=== PATIENT | female | born 1985 | race Caucasian/White ===

== ENCOUNTER 2022-11-11 11:56 | Emergency (ER) | payer OTHER, SELFPAY ==
[2022-11-11 12:05] VITALS: BP 141/71; PULSE 68; RESP 16; TEMP 36.7; O2SAT 100; BMI 28.9
--- NOTE | 2022-11-11 12:13 | DI.US.S_ITS ---
PROCEDURE: US PELVIC COMPLETE INDICATIONS: BLEEDING TECHNIQUE: Real-time scanning was performed of the pelvic organs, with image documentation. Additional endovaginal scanning was necessary due to incomplete visualization of the adnexal and endometrial structures by transabdominal scanning. COMPARISON: None. FINDINGS: Uterus: Uterus is anteverted and normal in size at 9.2 x 4.7 x 6.3 cm. The myometrium is homogeneous. The endometrium measures 21 mm combined thickness. Mild abnormal vascularity can be seen along the endometrial stripe. The cervix demonstrates a complex, irregular appearance. Ovaries: The right ovary measures 3.3 x 2 x 3.3 cm, with a calculated ovarian volume of 11.4 cc. The left ovary measures 3.1 x 2.1 x 2.1 cm, with a calculated ovarian volume of 7.4 cc. The ovaries have a normal sonographic appearance. Less than 12 follicles can be seen in each ovary. No adnexal masses are seen. Normal appearing venous and arterial waveforms are confirmed to each ovary. Other: No pathologic free abdominal or pelvic fluid. IMPRESSION: Thickened endometrial stripe, with abnormal vascularity seen along the endometrial stripe. This represents retained products of conception until proven otherwise. We strive to produce accurate, complete, and clear reports of imaging services. To assist us in improving patient care, this report was composed using standard report templates and voice recognition software. Therefore, it may contain abnormal punctuation, insertions and/or omissions. Occasional wrong-word or sound-alike substitutions may occur. Though we review the report and make efforts to correct it, we do recommend that the report be read carefully in proper context to recognize any text inaccuracies. Dictated by: John Pelaez M.D. on 11/11/2022 at 11:53 Approved by: John Pelaez M.D. on 11/11/2022 at 11:55
[2022-11-11 15:10] LABS: Add Manual Diff / Slide Review NO; Basophils Absolute Auto 100 /uL (0-100); Basophils Percent Auto 0.6 % (0-2); Eosinophils Absolute Auto 100 /uL (0-450); Hematocrit 37.9 % (36-46); Hemoglobin 12.7 g/dL (12.0-16.0); Lymphocytes Absolute Auto 1900 /uL (1100-4500); Lymphocytes Percent Auto 18.7 % (25-40); Mean Corpuscular HGB Conc 33.5 % (30-36); Mean Corpuscular Hemoglobin 27.6 PG (26-34); Mean Corpuscular Volume 82.4 fL (80-100); Monocytes Absolute Auto 400 /uL (0-900); Monocytes Percent Auto 4.1 % (3-14); Neutrophils Absolute Auto 7500 /uL (1500-7000); Neutrophils Percent Auto 75.6 % (50-75); Platelet Count 352 X10^3/uL (150-400); Red Cell Distribution Width 13.9 % (11.6-14.8); White Blood Cell Count 9.9 X10^3/uL (4.5-11.0)
[2022-11-11 15:15] LABS: Alanine Aminotransferase 11 IU/L (<35); Albumin 4.4 g/dL (3.5-5.0); Albumin Globulin Ratio 1.5 (1.0-2.8); Alkaline Phosphatase 49 U/L (38-126); Aspartate Aminotransferase 26 IU/L (14-36); BUN Creatinine Ratio 16.3 (6-22); Bilirubin Total 0.2 mg/dL (0.2-1.3); Blood Urea Nitrogen 13 mg/dL (7-17); Calcium 9.2 mg/dL (8.4-10.2); Carbon Dioxide 26 mmol/L (22-32); Chloride 104 mmol/L (98-107); Estimated Glomerular Filt Rate > 60 mL/min (>60); Glucose 99 mg/dL (70-100); HEMOLYSIS < 15 (0-50); Sodium 138 mmol/L (137-145); Total Protein 7.4 g/dL (6.3-8.2)
[2022-11-11 15:32] LABS: HCG Quantitative /Beta subunit 92.3 mIU/mL
--- NOTE | 2022-11-11 17:13 | ED.PREGNANCY ---
HPI - <Varun Sutherland PA-C - Last Filed: 11/11/22 17:40> General Chief complaint: Urogenital-Female Stated complaint: post miscarriage/still bleeding Time Seen by Provider: 11/11/22 13:43 Source: patient Mode of arrival: Ambulatory Limitations: no limitations History of Present Illness HPI Narrative: 36-year-old presents to the ED with abnormal bright red vaginal bleeding after a miscarriage. Patient states that she experienced a miscarriage 2-3 weeks ago, had copious bleeding which eventually tapered off. However, patient states that yesterday she started experiencing left-sided pelvic cramping and bright red vaginal bleeding. patient denies fever, chills, chest pain, shortness of breath, nausea, vomiting, dysuria, lightheadedness, dizziness, syncope. Patient states that she is not currently under the care of an OBGYN, states she was seeing a vacuum applicator operator when she had her miscarriage. Related Data Allergies Allergy/AdvReac Type Severity Reaction Status Date / Time tetracycline Allergy Intermediate Hives Verified 11/11/22 12:10 Review of Systems <Varun Sutherland PA-C - Last Filed: 11/11/22 17:40> Review of Systems ROS Unobtainable: All systems reviewed & are unremarkable except as noted in HPI and below Constitutional Constitutional: Denies chills, Denies fatigue, Denies fever(s), Denies frequent falls, Denies lethargy and Denies weakness Eyes Eyes: Denies change in vision, Denies eye discharge, Denies irritation and Denies loss of vision ENT Ears, Nose, Mouth, and Throat: Denies change in voice, Denies dizziness, Denies neck pain, Denies sore throat and Denies throat swelling Cardiovascular Cardiovascular: Denies chest pain, Denies irregular heart rhythm, Denies lightheadedness, Denies palpitations, Denies dyspnea, Denies dyspnea on exertion and Denies orthopnea Respiratory Respiratory: Denies cough, Denies dyspnea, Denies dyspnea on exertion and Denies wheezing Gastrointestinal Gastrointestinal: Denies abdominal pain, Denies change in bowel habits, Denies diarrhea, Denies nausea and Denies vomiting Genitourinary Genitourinary: Reports abnormal vaginal bleeding, Denies hematuria, Reports pelvic pain, Denies flank pain, Denies urinary incontinence and Denies urinary urgency Musculoskeletal Musculoskeletal: Denies back pain, Denies muscle weakness, Denies neck pain, Denies numbness and Denies tingling Integumentary/Breasts Skin/Breast: Denies pruritus, Denies erythema, Denies rash and Denies wounds Neurologic Neurologic: Denies behavioral changes, Denies confusion, Denies dizziness, Denies frequent falls, Denies loss of vision, Denies numbness, Denies tingling and Denies weakness Psychiatric Psychiatric: Denies anxiety, Denies behavioral changes, Denies confusion, Denies depression, Denies homicidal ideation and Denies suicidal ideation Endocrine Endocrine: Denies fatigue, Denies flushing and Denies palpitations Hematologic/Lymphatic Hematologic/Lymphatic: Denies easy bruising Allergic/Immunologic Allergic/Immunologic: Denies urticaria, Denies throat swelling and Denies wheezing Exam <Varun Sutherland PA-C - Last Filed: 11/11/22 17:40> Narrative Exam Narrative: Const General:?cooperative, healthy appearing and comfortable [facility] Head:?normal to inspection Ears:?hearing grossly normal bilaterally Nose:?external nose normal Face and sinus:?normal facial exam and sinuses nontender Mouth:?oral mucosae normal Throat:?posterior oropharynx normal Eyes General:?appearance normal, both eyes and all related structures Neck Neck:?normal visual inspection and no lymphadenopathy noted Resp Effort & Inspection:?normal respiratory effort Auscultation:?clear to auscultation bilaterally Cardio Rate:?regular rate Rhythm:?regular rhythm GI Abdomen is soft, nondistended, nontender to palpation. Neuro General:?patient alert, patient awake and patient oriented x3 Initial Vital Signs Initial Vital Signs: Vital Signs Temperature 98.1 F 11/11/22 12:05 Pulse Rate 68 11/11/22 12:05 Respiratory Rate 16 11/11/22 12:05 Blood Pressure 141/71 H 11/11/22 12:05 Pulse Oximetry 100 11/11/22 12:05 Oxygen Delivery Method Room Air 11/11/22 12:05 <Mayte Eduardo DO - Last Filed: 11/12/22 08:23> Initial Vital Signs Initial Vital Signs: Vital Signs Temperature 98.1 F 11/11/22 12:05 Pulse Rate 68 11/11/22 12:05 Respiratory Rate 16 11/11/22 12:05 Blood Pressure 141/71 H 11/11/22 12:05 Pulse Oximetry 100 11/11/22 12:05 Oxygen Delivery Method Room Air 11/11/22 12:05 Course <Varun Sutherland PA-C - Last Filed: 11/11/22 17:40> Orders Ordered: Discontinued Medications Acetaminophen (Acetaminophen 325 Mg Tablet) 975 mg PO NOW ONE Stop: 11/11/22 17:18 Last Admin: 11/11/22 17:20 Dose: 975 mg Documented By: RB Ondansetron HCl (Ondansetron 4 Mg Odt) 4 mg SL NOW ONE Stop: 11/11/22 17:18 Last Admin: 11/11/22 17:20 Dose: 4 mg Documented By: RB Vital Signs Vital signs: Vital Signs - 8 hr 11/11/22 12:05 Temperature 98.1 F Pulse Rate 68 Respiratory Rate 16 Blood Pressure 141/71 H Pulse Oximetry 100 Oxygen Delivery Method Room Air <Mayte Eduardo DO - Last Filed: 11/12/22 08:23> Orders Ordered: Discontinued Medications Acetaminophen (Acetaminophen 325 Mg Tablet) 975 mg PO NOW ONE Stop: 11/11/22 17:18 Last Admin: 11/11/22 17:20 Dose: 975 mg Documented By: RB Ondansetron HCl (Ondansetron 4 Mg Odt) 4 mg SL NOW ONE Stop: 11/11/22 17:18 Last Admin: 11/11/22 17:20 Dose: 4 mg Documented By: RB Vital Signs Vital signs: Vital Signs - 8 hr 11/11/22 12:05 Temperature 98.1 F Pulse Rate 68 Respiratory Rate 16 Blood Pressure 141/71 H Pulse Oximetry 100 Oxygen Delivery Method Room Air MDM - OB/Uterine Contractions <Varun Sutherland PA-C - Last Filed: 11/11/22 17:40> Lab Data 11/11/22 14:50 11/11/22 14:50 Labs: Lab Results 11/11/22 11/11/22 11/11/22 Range/Units 14:50 14:50 14:50 WBC 9.9 (4.5-11.0) X10^3/uL RBC 4.60 (4.0-5.2) X10^6/uL Hgb 12.7 (12.0-16.0) g/dL Hct 37.9 (36-46) % MCV 82.4 (80-100) fL MCH 27.6 (26-34) PG MCHC 33.5 (30-36) % RDW 13.9 (11.6-14.8) % Plt Count 352 (150-400) X10^3/uL Neut % (Auto) 75.6 H (50-75) % Lymph % (Auto) 18.7 L (25-40) % [place] % (Auto) 4.1 (3-14) % Eos % (Auto) 1.0 L (2-4) % Baso % (Auto) 0.6 (0-2) % Neut # (Auto) 7500 H (9586-8809) /uL Lymph # (Auto) 1900 (0477-9977) /uL [place] # (Auto) 400 (0-900) /uL Eos # (Auto) 100 (0-450) /uL Baso # (Auto) 100 (0-100) /uL Sodium 138 (137-145) mmol/L Potassium 4.0 (3.4-5.1) mmol/L Chloride 104 (98-107) mmol/L Carbon Dioxide 26 (22-32) mmol/L BUN 13 (7-17) mg/dL Creatinine 0.80 (0.52-1.04) mg/dL Estimated GFR > 60 (>60) mL/min BUN/Creatinine Ratio 16.3 (6-22) Glucose 99 (70-100) mg/dL Calcium 9.2 (8.4-10.2) mg/dL Total Bilirubin 0.2 (0.2-1.3) mg/dL AST 26 (14-36) IU/L ALT 11 (<35) IU/L Alkaline Phosphatase 49 (38-126) U/L Total Protein 7.4 (6.3-8.2) g/dL Albumin 4.4 (3.5-5.0) g/dL Globulin 3.0 (1.7-4.1) g/dL Albumin/Globulin Ratio 1.5 (1.0-2.8) HCG, Quant 92.3 mIU/mL Blood Type A Positive MDM Narrative Medical decision making narrative: 36-year-old presents to the ED with abnormal bright red vaginal bleeding after a miscarriage. Concern for retained products of conception versus intrauterine versus ectopic versus other intra-abdominal pathology versus menstrual period versus other. will obtain labs, type and screen, hCG quantitative, pelvic ultrasound. Will reassess. Ultrasound shows a thickened endometrial stripe, with abnormal vascularity seen along the endometrial stripe. This represents retained products of conception until proven otherwise. No pathology free abdominal or pelvic fluid. Quantitative hCG is 92.3. Patient is blood type A positive. All labs otherwise within normal limits. Given that patient does not have an OBGYN that she sees, our on-call OBGYN Dr. Davis was consulted. Dr. Davis will come down and see the patient. During the ED stay, patient expressed worsening pain and nausea. Will give Tylenol, Zofran. Will reassess. Patient's symptoms improved with medications. Dr. Davis saw the patient, has scheduled a D&C procedure for 11/13/2022. She has also given patient misoprostol to take prior to the procedure. Patient agrees to follow-up with Dr. Davis as scheduled. ED return precautions were discussed with patient. She verbalized understanding. Medical records reviewed: Yes <Mayte Eduardo, - Last Filed: 11/12/22 08:23> Lab Data Labs: Lab Results 11/11/22 11/11/22 11/11/22 Range/Units 14:50 14:50 14:50 WBC 9.9 (4.5-11.0) X10^3/uL RBC 4.60 (4.0-5.2) X10^6/uL Hgb 12.7 (12.0-16.0) g/dL Hct 37.9 (36-46) % MCV 82.4 (80-100) fL MCH 27.6 (26-34) PG MCHC 33.5 (30-36) % RDW 13.9 (11.6-14.8) % Plt Count 352 (150-400) X10^3/uL Neut % (Auto) 75.6 H (50-75) % Lymph % (Auto) 18.7 L (25-40) % [place] % (Auto) 4.1 (3-14) % Eos % (Auto) 1.0 L (2-4) % Baso % (Auto) 0.6 (0-2) % Neut # (Auto) 7500 H (0741-6127) /uL Lymph # (Auto) 1900 (5421-3365) /uL [place] # (Auto) 400 (0-900) /uL Eos # (Auto) 100 (0-450) /uL Baso # (Auto) 100 (0-100) /uL Sodium 138 (137-145) mmol/L Potassium 4.0 (3.4-5.1) mmol/L Chloride 104 (98-107) mmol/L Carbon Dioxide 26 (22-32) mmol/L BUN 13 (7-17) mg/dL Creatinine 0.80 (0.52-1.04) mg/dL Estimated GFR > 60 (>60) mL/min BUN/Creatinine Ratio 16.3 (6-22) Glucose 99 (70-100) mg/dL Calcium 9.2 (8.4-10.2) mg/dL Total Bilirubin 0.2 (0.2-1.3) mg/dL AST 26 (14-36) IU/L ALT 11 (<35) IU/L Alkaline Phosphatase 49 (38-126) U/L Total Protein 7.4 (6.3-8.2) g/dL Albumin 4.4 (3.5-5.0) g/dL Globulin 3.0 (1.7-4.1) g/dL Albumin/Globulin Ratio 1.5 (1.0-2.8) HCG, Quant 92.3 mIU/mL Blood Type A Positive Discharge Plan Departure Patient Disposition: Home Clinical Impression: Retained products of conception Instructions: DI for Miscarriage Activity Restrictions/Additional Instructions: You were evaluated for abnormal vaginal bleeding and pelvic cramping. Your ultrasound shows possible retained products of conception which could indicate a incomplete miscarriage. You were seen by OBGYN Dr. Davis who has scheduled a D&C procedure for11/13/2022 for you. She has also offered you misoprostol for you to take prior to the procedure. Please follow-up with Dr. Davis as scheduled. Return to the ED if you are having worsening symptoms. Referrals: Miscellaneous,Doctor, MD [Primary Care Provider] - Stand Alone Forms: Patient Portal/API <Mayte Eduardo DO - Last Filed: 11/12/22 08:23> Cosign ED Attending Paula Attestation: I was immediately available in the department for consultation. Documentation has been reviewed. Case was discussed. Patient was seen by paint roller assembler here in the department and plan for DC in the next 48 hours.
[2022-11-11] MEDS: ONDANSETRON 4 MG ODT SL (17:20)
[2022-11-11] MEDS: ACETAMINOPHEN 325 MG TABLET 975 MG PO (17:20)
--- NOTE | 2022-11-11 17:36 | PM.GYNHP.1 ---
History of Present Illness History of Present Illness Reason for admission: incomplete Narrative: Ingrid Bishop is a 36 year old female who presented to the emergency room with bleeding after spontaneous miscarriage. COUNTS INCLUDE 234 BEDS AT THE [facility] Social History Smoking Status: Never smoker Meds Home Medications and Allergies Allergies Allergy/AdvReac Type Severity Reaction Status Date / Time tetracycline Allergy Intermediate Hives Verified 11/11/22 12:10 Review of Systems Review of Systems Narrative: Patient with bleeding and passage of tissue after spontaneous miscarriage with the bleeding decreased then increased again. Patient feels her bleeding now is similar to a normal menses. No fevers. Cramping but no pain. Exam Vital Signs (past 8 hours): - 11/11/22 12:05 Temperature 98.1 F Pulse Rate 68 Respiratory Rate 16 Blood Pressure 141/71 H Pulse Oximetry 100 Oxygen Delivery Method Room Air Oxygen Delivery Method Room Air Narrative Exam Narrative: HEENT exam within normal limits. Lungs are clear to auscultation percussion. Heart is regular rate and rhythm no S3-S4 murmurs. Abdomen is soft, nontender. Pelvic exam not performed. Extremities without edema and nontender. Objective Imaging US - abdomen: Radiologist's impression: Retained products of conception Labs 11/11/22 14:50 11/11/22 14:50 Labs: Laboratory Results - last 24 hr 11/11/22 11/11/22 11/11/22 14:50 14:50 14:50 WBC 9.9 RBC 4.60 Hgb 12.7 Hct 37.9 MCV 82.4 MCH 27.6 MCHC 33.5 RDW 13.9 Plt Count 352 Neut % (Auto) 75.6 H Lymph % (Auto) 18.7 L [place] % (Auto) 4.1 Eos % (Auto) 1.0 L Baso % (Auto) 0.6 Neut # (Auto) 7500 H Lymph # (Auto) 1900 [place] # (Auto) 400 Eos # (Auto) 100 Baso # (Auto) 100 Sodium 138 Potassium 4.0 Chloride 104 Carbon Dioxide 26 BUN 13 Creatinine 0.80 Estimated GFR > 60 BUN/Creatinine Ratio 16.3 Glucose 99 Calcium 9.2 Total Bilirubin 0.2 AST 26 ALT 11 Alkaline Phosphatase 49 Total Protein 7.4 Albumin 4.4 Globulin 3.0 Albumin/Globulin Ratio 1.5 HCG, Quant 92.3 Blood Type A Positive Assessment & Plan Assessment and plan (1) Retained products of conception: Status: Acute Assessment & Plan narrative: Patient with retained products of conception after spontaneous miscarriage. Patient was given options for waiting for spontaneous miscarriage with retained products, Cytotec to try to encourage the miscarriage to finish, suction D&C. Patient would like to do a suction D&C however she ate within an hour and a half of my seeing her. Patient will be discharged home and a suction D&C scheduled for the next few days. She is to return to the hospital if she has heavier bleeding or concerns prior to that time. Consent form for suction D&C was reviewed with the patient. Minimal risk of infection, bleeding, reaction to medication or anesthesia, perforation of the uterus that could result in additional surgery with damage to internal structures, scar tissue forming inside the uterus, need for additional surgery if not all tissue was removed at the time of the procedure. Consent form signed and questions answered.
[2022-11-11 17:41] VITALS: BP 123/78; PULSE 72; RESP 18; O2SAT 97
== END 2022-11-11 17:42 | disposition home or self-care (01) ==
PROVIDERS: Emergency Medicine; Emergency Provider Student in an Organized Health Care Education/Training Program
DX: O03.4 Incomplete spontaneous abortion without complication (principal); R11.0 Nausea
CPT/HCPCS: 76830; 76856; 80053; 84702; 85025; 86900; 86901; 93975; 99283

== ENCOUNTER → 2022-12-02 15:47 | Outpatient (CLI) | payer OTHER, SELFPAY ==
[2022-12-02 16:49] LABS: Add Manual Diff / Slide Review NO; Basophils Absolute Auto 100 /uL (0-100); Basophils Percent Auto 0.9 % (0-2); Eosinophils Absolute Auto 200 /uL (0-450); Hemoglobin 12.3 g/dL (12.0-16.0); Lymphocytes Absolute Auto 2400 /uL (1100-4500); Mean Corpuscular HGB Conc 34.2 % (30-36); Mean Corpuscular Volume 81.8 fL (80-100); Monocytes Absolute Auto 500 /uL (0-900); Monocytes Percent Auto 6.7 % (3-14); Neutrophils Absolute Auto 3800 /uL (1500-7000); Neutrophils Percent Auto 54.4 % (50-75); Platelet Count 360 X10^3/uL (150-400); Red Cell Distribution Width 13.5 % (11.6-14.8)
[2022-12-02 17:28] LABS: HCG Quantitative /Beta subunit < 2.4 mIU/mL
== END ==
PROVIDERS: PCP Naturopath; Referring Provider Obstetrics & Gynecology; Visit Provider Obstetrics & Gynecology
DX: N93.9 Abnormal uterine and vaginal bleeding, unspecified (principal); O03.9 Complete or unspecified spontaneous abortion without complication
CPT/HCPCS: 84702; 85025

== ENCOUNTER → 2023-12-25 07:47 | Outpatient (CLI) | payer OTHER, SELFPAY ==
--- NOTE | 2023-12-25 07:48 | DI.US.S_ITS ---
PROCEDURE: US OB >= 14 WEEKS FETUS INDICATIONS: 20 WEEK ANATOMY SCAN OUTSIDE/PRIOR DATING DATA: Last menstrual period (LMP): 07/29/2023 LMP-based estimated date of delivery (AILEEN): 05/04/2024 Working estimated date of delivery: 05/04/2024 new line TECHNIQUE: Real-time scanning was performed of the fetus, with image documentation and biometric measurements. Endovaginal scanning: Not performed COMPARISON: None. FINDINGS: General: A single living intrauterine gestation is present. Presentation: Variable Placenta: Placental position is fundal, without previa. Amniotic fluid index: 17.8 cm, normal range is 5-24 cm. Single deepest vertical pocket is 5.0 cm. heart rate: 139 beats per minute. Maternal cervical canal: Closed and measures 5.1 cm long. Normal lower limit is 2.5 cm. biometrics: Biparietal diameter: 4.6 cm, 20 weeks, 0 day. Head circumference: 17.8 cm, 20 weeks, 2 days. Abdominal circumference: 15.9 cm, 21 weeks, 0 day. Femur length: 3.5 cm, 20 weeks, 6 days. Clinically estimated gestational age: 21 weeks, 2 days. Composite gestational age from present scan: 20 weeks, 4 days. Estimated weight and percentile: 382 g, 24%. Anatomic survey: Neuro: Ventricles are non-dilated at less than 10 mm. Cisterna magna is normal at 3-11 mm. Cerebellum is normal in size and morphology. Nuchal skin fold: Normal at less than 6 mm between 14-21 weeks gestational age. Face: Nose and lips, facial profile are normal. Spine: No evidence for spina bifida. Heart: 4-chambered heart is present, with normal ventricular outflow tracts. Diaphragm: Diaphragm is intact. Stomach: Left-sided stomach is present. Echogenic material is noted within stomach lumen and show no internal vascularity. Kidneys: No hydronephrosis. Normal is less than 5 mm in 2nd trimester, less than 7 mm in 3rd trimester. Cord: 3-vessel cord has orthotopic insertion. Bladder: Normal in size. Extremities: All 4 extremities identified. IMPRESSION: 1. Single live intrauterine gestation with fetus in variable presentation. heart rate is 139 beats per minute. Normal WALTER at 17.8 cm. Estimated weight is 382 g and is at 24%. 2. Echogenic material is noted within stomach lumen and show no internal vascularity. Finding is of indeterminate significance suggest ultrasound follow-up. 3. Rest of the anatomic survey is normal. We strive to produce accurate, complete, and clear reports of imaging services. To assist us in improving patient care, this report was composed using standard report templates and voice recognition software. Therefore, it may contain abnormal punctuation, insertions and/or omissions. Occasional wrong-word or sound-alike substitutions may occur. Though we review the report and make efforts to correct it, we do recommend that the report be read carefully in proper context to recognize any text inaccuracies. Dictated by: Man Jenkins M.D. on 12/25/2023 at 11:28 Approved by: Man Jenkins M.D. on 12/25/2023 at 11:32
== END ==
LOC: US 07:47
PROVIDERS: PCP Naturopath; Referring Provider Nurse Practitioner Obstetrics & Gynecology; Visit Provider Nurse Practitioner Obstetrics & Gynecology
DX: Z34.92 Encounter for supervision of normal pregnancy, unspecified, second trimester (principal); Z3A.20 20 weeks gestation of pregnancy
CPT/HCPCS: 76811